=== PATIENT | female | born 1995 | race Caucasian/White ===

== ENCOUNTER 2017-06-30 15:32 | Emergency (ER) | payer BC ==
[2017-06-30] MEDS ORDERED: Sodium Chloride 0.9% 10 ML Syringe FLUSH PRN (16:27)
[2017-06-30] MEDS ORDERED: Sodium Chloride 0.9% 1,000 ML IV STA (16:27)
[2017-06-30] MEDS ORDERED: Acetaminophen 325 MG Tab PO ONE (18:49)
--- NOTE | 2017-06-30 18:55 | EDM.PDOC ---
ED HPI GENERAL MEDICAL PROBLEM - General Chief Complaint: Abdominal Pain Stated Complaint: ABDOMINAL PAINS 18 WKS PG Time Seen by Provider: 06/30/17 16:14 Source of Information: Reports: Patient History Limitations: Reports: No Limitations - History of Present Illness INITIAL COMMENTS - FREE TEXT/NARRATIVE: The patient presents with low back pain that started about an hour ago. The pain then moved to her abdomen and then to her chest. The pain was severe but it has gotten better. She denies fever, chills, cough, shortness of breath, and dysuria. She had some nausea. Onset: Gradual Duration: Hour(s): Location: Reports: Chest, Abdomen, Back Quality: Reports: Sharp Severity: Moderate Improves with: Reports: None Worsens with: Reports: None Associated Symptoms: Reports: Nausea/Vomiting. 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: Social & Family History - Family History Family Medical History: Noncontributory - Tobacco Use Smoking Status *Q: Never Smoker - Recreational Drug Use Recreational Drug Use: No ED ROS GENERAL - Review of Systems Review Of Systems: See Below Constitutional: Reports: No Symptoms HEENT: Reports: No Symptoms Respiratory: Reports: No Symptoms Cardiovascular: Reports: Chest Pain Endocrine: Reports: No Symptoms GI/Abdominal: Reports: Abdominal Pain : Reports: No Symptoms Musculoskeletal: Reports: Back Pain ED EXAM, GI/ABD - Physical Exam Exam: See Below Exam Limited By: No Limitations General Appearance: Alert, No Apparent Distress Ears: Normal External Exam Nose: Normal Inspection Head: Atraumatic, Normocephalic Neck: Normal Inspection Respiratory/Chest: No Respiratory Distress, Lungs Clear, Normal Breath Sounds Cardiovascular: Regular Rate, Rhythm, No Edema, No Murmur GI/Abdominal Exam: Soft, No Organomegaly, No Mass, Tender (Mild tenderness to the abdomen. Fundus is above the pubic symphisis.) EKG INTERPRETATION EKG Date: 06/30/17 Time: 16:47 Rhythm: NSR Rate (Beats/Min): 67 Wayside: Normal P-Wave: Present QRS: Normal ST-T: Normal QT: Normal Course - Vital Signs Last Recorded V/S: Last Vital Signs Temp 97.8 F 06/30/17 16:04 Pulse 77 06/30/17 16:04 Resp 16 06/30/17 16:04 BP 113/78 06/30/17 16:04 Pulse Ox 100 06/30/17 16:04 - Orders/Labs/Meds Orders: Active Orders 24 hr Category Date Time Status EKG Documentation Completion [RC] ASDIRECTED Care 06/30/17 16:28 Active Peripheral IV Care [RC] . DIRECTED Care 06/30/17 16:27 Active UA W/MICROSCOPIC [URIN] Stat Lab 06/30/17 16:24 Ordered Sodium Chloride 0.9% [Saline Flush] Med 06/30/17 16:27 Active 10 ml FLUSH ASDIRECTED PRN Peripheral IV Insertion Adult [OM.PC] Stat Oth 06/30/17 16:27 Ordered EKG 12 Lead [EK] Stat Ther 06/30/17 16:28 Ordered Medication Orders Sodium Chloride (Saline Flush) 10 ml FLUSH ASDIRECTED PRN PRN Reason: Keep Vein Open Last Admin: 06/30/17 16:52 Dose: 10 ml Labs: Laboratory Tests 06/30/17 06/30/17 06/30/17 Range/Units 16:24 16:45 16:45 WBC 11.31 H (3.98-10.04) K/mm3 RBC 3.76 L (3.98-5.22) M/mm3 Hgb 11.2 (11.2-15.7) gm/L Hct 32.5 L (34.1-44.9) % MCV 86.4 (79.4-94.8) fl MCH 29.8 (25.6-32.2) pg MCHC 34.5 (32.2-35.5) g/dl RDW Std Deviation 38.8 (36.4-46.3) fL Plt Count 231 (182-369) K/mm3 MPV 9.7 (9.4-12.3) fl Neut % (Auto) 76.2 H (34.0-71.1) % Lymph % (Auto) 16.9 L (19.3-51.7) % [place] % (Auto) 5.9 (4.7-12.5) % Eos % (Auto) 0.4 L (0.7-5.8) Baso % (Auto) 0.3 (0.1-1.2) % Neut # (Auto) 8.63 H (1.56-6.13) K/mm3 Lymph # (Auto) 1.91 (1.18-3.74) K/mm3 [place] # (Auto) 0.67 H (0.24-0.36) K/mm3 Eos # (Auto) 0.04 (0.04-0.36) K/mm3 Baso # (Auto) 0.03 (0.01-0.08) K/mm3 Sodium 134 L (136-145) mEq/L Potassium 3.6 (3.5-5.1) mEq/L Chloride 100 (98-107) mEq/L Carbon Dioxide 25 (21-32) mEq/L Anion Gap 12.6 (5-15) BUN 8 (7-18) mg/dL Creatinine 0.5 L (0.55-1.02) mg/dL Est Cr Clr Drug Dosing 168.46 mL/min Estimated GFR (MDRD) > 60 (>60) mL/min BUN/Creatinine Ratio 16.0 (14-18) Glucose 81 (74-106) mg/dL Calcium 9.0 (8.5-10.1) mg/dL Total Bilirubin 0.2 (0.2-1.0) mg/dL AST 16 (15-37) U/L ALT 12 L (14-59) U/L Alkaline Phosphatase 34 L (46-116) U/L Total Protein 6.7 (6.4-8.2) g/dl Albumin 3.2 L (3.4-5.0) g/dl Globulin 3.5 gm/dL Albumin/Globulin Ratio 0.9 L (1-2) Lipase 106 (73-393) U/L Urine Color Yellow (Yellow) Urine Appearance Clear (Clear) Urine pH 7.0 (5.0-8.0) Ur Specific [place] 1.020 (1.005-1.030) Urine Protein Negative (Negative) Urine Glucose (UA) Negative (Negative) Urine Ketones Negative (Negative) Urine Occult Blood Negative (Negative) Urine Nitrite Negative (Negative) Urine Bilirubin Negative (Negative) Urine Urobilinogen 0.2 (0.2-1.0) Ur Leukocyte Esterase Negative (Negative) Urine RBC Not seen (0-5) /hpf Urine WBC 0-5 (0-5) /hpf Ur Epithelial Cells 0-5 (0-5) /hpf Urine Bacteria Not seen (FEW) /hpf Urine Mucus Not seen (FEW) /hpf Meds: Medications Generic Name Dose Route Start Last Admin Trade Name Freq PRN Reason Stop Dose Admin Sodium Chloride 10 ml 06/30/17 16:27 06/30/17 16:52 Saline Flush FLUSH 10 ml ASDIRECTED PRN Administration Keep Vein Open Discontinued Medications Generic Name Dose Route Start Last Admin Trade Name Freq PRN Reason Stop Dose Admin Acetaminophen 975 mg 06/30/17 18:49 Tylenol PO 06/30/17 18:50 NOW ONE Sodium Chloride 1,000 mls @ 1,000 mls/hr 06/30/17 16:27 06/30/17 16:51 Normal Saline IV 06/30/17 17:26 1,000 mls/hr .BOLUS STA Administration - Re-Assessments/Exams Free Text/Narrative Re-Assessment/Exam: 06/30/17 18:56 I ordered an IV NS 1L bolus, UA, labs and an EKG. Her EKG shows a NSR with no acute changes. Her WBC was slightly elevated at 11.31. Her Na was slightly elevated at 134. Her UA shows no UTI. She feels a little better. I ordered some tylenol 975g by mouth. Departure - Departure Time of Disposition: 19:00 Disposition: Home, Self-Care 01 Condition: Good Clinical Impression: Atypical chest pain Abdominal pain Qualifiers: Abdominal location: generalized Qualified Code(s): R10.84 - Generalized abdominal pain Low back pain Qualifiers: Chronicity: acute Back pain laterality: bilateral Sciatica presence: without sciatica Qualified Code(s): M54.5 - Low back pain - Discharge Information Referrals: Debo Dempsey MD [Primary Care Provider] - 1 Week Additional Instructions: Drink plenty of fluids. Take tylenol for any pain. Please return if you are worse. - My Orders Last 24 Hours: My Active Orders 06/30/17 16:24 UA W/MICROSCOPIC [URIN] Stat 06/30/17 16:27 Peripheral IV Care [RC] . DIRECTED Sodium Chloride 0.9% [Saline Flush] 10 ml FLUSH ASDIRECTED PRN Peripheral IV Insertion Adult [OM.PC] Stat 06/30/17 16:28 EKG Documentation Completion [RC] ASDIRECTED EKG 12 Lead [EK] Stat - Assessment/Plan Last 24 Hours: My Active Orders 06/30/17 16:24 UA W/MICROSCOPIC [URIN] Stat 06/30/17 16:27 Peripheral IV Care [RC] . DIRECTED Sodium Chloride 0.9% [Saline Flush] 10 ml FLUSH ASDIRECTED PRN Peripheral IV Insertion Adult [OM.PC] Stat 06/30/17 16:28 EKG Documentation Completion [RC] ASDIRECTED EKG 12 Lead [EK] Stat
== END 2017-06-30 19:08 | disposition home or self-care (01) ==
LOC: JD.ED 15:32
DX: O99.89 Other specified diseases and conditions complicating pregnancy, childbirth and the puerperium (principal); R07.89 Other chest pain; M54.5 Low back pain; R10.84 Generalized abdominal pain; Z3A.18 18 weeks gestation of pregnancy
CPT/HCPCS: 36415; 80053; 81001; 83690; 85025; 93005; 96360; 99284; A9270; J7040; J7050

== ENCOUNTER 2019-11-25 22:09 | Inpatient (IN) | payer MEDICAID ==
[2019-11-25] MEDS: Lactated Ringers 1,000 ML IV SCH ×2 (22:20→23:48)
[2019-11-25] MEDS ORDERED: Ondansetron 4 MG/2 ML SDV IVPUSH PRN (22:37)
[2019-11-25] MEDS ORDERED: Sodium Chloride 0.9% 10 ML Syringe FLUSH PRN (22:37)
[2019-11-25] MEDS ORDERED: Nalbuphine 10 MG/ML Syringe IVPUSH PRN (22:37)
--- NOTE | 2019-11-25 22:40 | PCM.LDHP ---
L&D History of Present Illness - General Date of Service: 11/25/19 Admit Problem/Dx: Patient Status Order with Admit Dx/Problem 11/25/19 22:38 Patient Status [ADT] Routine Admission Diagnosis/Problem Admission Diagnosis/Problem Normal labor Source of Information: Patient History Limitations: Reports: No Limitations - History of Present Illness Introduction:: Patient is a 24 y/o at 40 1/7 wks who presents in labor. Contractions started earlier this PM. 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: : 2 Para: 1 LMP (Approximate): Psychiatric History: Reports: Anxiety, Depression, Suicide Attempt Other Psychiatric History: when 17 tried to overdose Hematologic History: Reports: Anemia - Past Surgical History HEENT Surgical History: Reports: Oral Surgery Other HEENT Surgeries/Procedures: wisdom teeth extraction Social & Family History - Family History Family Medical History: Noncontributory Cardiac: Reports: Hypertension - Tobacco Use Tobacco Use Status *Q: Former Tobacco User - Caffeine Use Caffeine Use: Reports: None - Alcohol Use Alcohol Use History: No - Recreational Drug Use Recreational Drug Use: No H&P Review of Systems - Review of Systems: Review Of Systems: See Below General: Reports: No Symptoms Pulmonary: Reports: No Symptoms Cardiovascular: Reports: No Symptoms Gastrointestinal: Reports: No Symptoms Genitourinary: Reports: No Symptoms Musculoskeletal: Reports: No Symptoms Psychiatric: Reports: No Symptoms Neurological: Reports: No Symptoms L&D Exam - Exam Exam: See Below - OB Specific Contraction Intensity: Moderate to Strong Movement: Active Heart Tones: Present Heart Tones per Min: 120 Heart Rate (FHR) Variability: Moderate (6-25 bmp) Presentation: Vertex - Lopez Score Lopez Score Cervix Position: Anterior Lopez Score Consistency: Soft Lopez Score Effacement: >80% Lopez Score Dilation: > 5 cm Lopez Score 's Station: -1 ,0 Lopez Score Total: 12 - Exam General: Alert, Oriented, Cooperative Lungs: Clear to Auscultation, Normal Respiratory Effort Cardiovascular: Regular Rate, Regular Rhythm GI/Abdominal Exam: Soft, Non-Tender Genitourinary: Normal external exam Extremities: Normal Inspection Skin: Warm, Dry, Intact - Patient Data Result Diagrams: 11/25/19 22:45 - Problem List (1) 40 weeks gestation of SNOMED Code(s): 85259115 ICD Code: Z3A.40 - 40 WEEKS GESTATION OF Status: Acute Current Visit: Yes Problem List Initiated/Reviewed/Updated: Yes Orders Last 24hrs: Active Orders 24 hr Category Date Time Status Patient Status [ADT] Routine ADT 11/25/19 22:38 Ordered Activity as Tolerated [RC] PFP Care 11/25/19 22:38 Ordered Communication Order [RC] ASDIRECTED Care 11/25/19 22:38 Ordered Heart Tones [RC] ASDIRECTED Care 11/25/19 22:38 Ordered Non Stress Test [RC] PER UNIT ROUTINE Care 11/25/19 22:38 Ordered Notify Provider [RC] PFP Care 11/25/19 22:38 Ordered Notify Provider [RC] PRN Care 11/25/19 22:38 Ordered Peripheral IV Care [RC] . DIRECTED Care 11/25/19 22:38 Ordered Vital Signs [RC] PER UNIT ROUTINE Care 11/25/19 22:38 Ordered Regular Diet [DIET] Diet 11/25/19 Dinner Ordered CBC W/O DIFF,HEMOGRAM [HEME] Stat Lab 11/25/19 22:37 Ordered CORONAVIRUS COVID-19 JUAN DANIEL [MOLEC] Stat Lab 11/25/19 22:39 Ordered RAPID PLASMA REAGIN,RPR [CHEM] Routine Lab 11/25/19 22:38 Ordered TYPE AND SCREEN [BBK] Stat Lab 11/25/19 22:37 Ordered Lactated Ringers [Ringers, Lactated] 1,000 ml Med 11/25/19 22:45 Ordered IV ASDIRECTED Nalbuphine [Nubain] Med 11/25/19 22:37 Ordered 10 mg IVPUSH Q2H PRN Ondansetron [Zofran] Med 11/25/19 22:37 Ordered 4 mg IVPUSH Q4H PRN Oxytocin/Lactated Ringers [Pitocin in LR 10 Units/1,000 Med 11/25/19 22:45 Ordered ML] 10 unit in 1,000 ml IV .CONTINUOUS Sodium Chloride 0.9% [Saline Flush] Med 11/25/19 22:37 Ordered 10 ml FLUSH ASDIRECTED PRN Electronic Heart Tones Ext w TOCO [WOMSER] Oth 11/25/19 22:38 Ordered Routine Electronic Heart Tones Internal [WOMSER] Per Unit Ot 11/25/19 22:38 O rdered Routine Peripheral IV Insertion Adult [OM.PC] Routine Oth 11/25/19 22:38 Ordered Resuscitation Status Routine Resus Stat 11/25/19 22:37 Ordered Assessment/Plan Comment:: * Labs * GBS negative * Pain management per patient preference * Anticipate
[2019-11-25] MEDS ORDERED: Oxytocin/Lactated Ringers 10 UNIT/1,000 ML BAG IV SCH (22:45)
[2019-11-25] MEDS ORDERED: ePHEDrine 50 MG/ML SDV IVPUSH PRN (23:22)
[2019-11-25] MEDS ORDERED: Bupivacaine/fentaNYL/NS 100 ML Bag EPIDUR PRN (23:22)
[2019-11-25] MEDS ORDERED: diphenhydrAMINE 50 MG/ML SDV IVPUSH PRN (23:22)
[2019-11-25] MEDS ORDERED: fentaNYL 100 MCG/2 ML SDV EPIDUR PRN (23:22)
--- NOTE | 2019-11-25 23:41 | PCM.PREANE ---
Preanesthetic Assessment - Procedure Proposed Procedure: spinal for delivery and labor - Anesthesia/Transfusion/Family Hx Anesthesia History: Prior Anesthesia Without Reaction Family History of Anesthesia Reaction: No Transfusion History: No Prior Transfusion(s) - Review of Systems General: No Symptoms Pulmonary: No Symptoms Cardiovascular: No Symptoms Gastrointestinal: No Symptoms Neurological: No Symptoms Other: Reports: Depression, Anxiety - Physical Assessment Vital Signs: 131/93 100% 20 78 Height: 5 ft 7 in Weight: 75.296 kg ASA Class: 2 Mental Status: Alert & Oriented x3 Airway Class: Mallampati = 1 Dentition: Reports: Normal Dentition Thyro-Mental Finger Breadths: 3 Mouth Opening Finger Breadths: 3 ROM/Head Extension: Full Lungs: Clear to Auscultation, Normal Respiratory Effort Cardiovascular: Regular Rate, Regular Rhythm - Lab Values: Laboratory Last Values WBC 14.57 K/mm3 (3.98-10.04) H 11/25/19 22:45 RBC 3.59 M/mm3 (3.98-5.22) L 11/25/19 22:45 Hgb 9.7 gm/dl (11.2-15.7) L 11/25/19 22:45 Hct 30.6 % (34.1-44.9) L 11/25/19 22:45 MCV 85.2 fl (79.4-94.8) 11/25/19 22:45 MCH 27.0 pg (25.6-32.2) 11/25/19 22:45 MCHC 31.7 g/dl (32.2-35.5) L 11/25/19 22:45 RDW Std Deviation 40.7 fL (36.4-46.3) 11/25/19 22:45 Plt Count 273 K/mm3 (182-369) 11/25/19 22:45 MPV 9.6 fl (9.4-12.3) 11/25/19 22:45 - Allergies Allergies/Adverse Reactions: Allergies Allergy/AdvReac Type Severity Reaction Status Date / Time No Known Allergies Allergy Verified 11/18/19 17:39 - Blood Blood Available: No - Acknowledgements Anesthesia Type Planned: Spinal Pt an Appropriate Candidate for the Planned Anesthesia: Yes Alternatives and Risks of Anesthesia Discussed w Pt/Guardian: Yes Pt/Guardian Understands and Agrees with Anesthesia Plan: Yes PreAnesthesia Questionnaire - Past Health History Medical/Surgical History: Denies Medical/Surgical History HEENT History: Reports: Impaired Vision Other HEENT History: wears eye glasses, has flashes/vision changes in Cardiovascular History: Reports: Heart Murmur (when young) Respiratory History: Reports: None Gastrointestinal History: Reports: Chronic Constipation, GERD 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 HTN Psychiatric History: Reports: Anxiety, Depression, Suicide Attempt Other Psychiatric History: when 17 tried to overdose Hematologic History: Reports: Anemia - Past Surgical History HEENT Surgical History: Reports: Oral Surgery Other HEENT Surgeries/Procedures: wisdom teeth extraction - SUBSTANCE USE Tobacco Use Status *Q: Former Tobacco User Tobacco Use Within Last Twelve Months: Cigarettes Second Hand Smoke Exposure: Yes Days Per Week of Alcohol Use: 0 Recreational Drug Use History: No - HOME MEDS Home Medications: Home Meds Vit/FA/Fe Fumarate/Se [ MTR] 1 tab PO DAILY 11/18/19 [History] - CURRENT (IN HOUSE) MEDS Current Meds: Current Medications Diphenhydramine HCl (Benadryl) 25 mg IVPUSH Q6H PRN PRN Reason: pruritis Ephedrine Sulfate (Ephedrine Sulfate) 5 mg IVPUSH ASDIRECTED PRN PRN Reason: Hypotension Fentanyl (Sublimaze) 100 mcg EPIDUR Q3H PRN PRN Reason: Pain Fentanyl/Bupivacaine HCl (Fentanyl/Bupivacaine/Ns 2 Mcg-0.125% 100 Ml) 100 ml EPIDUR ASDIRECTED PRN PRN Reason: Pain Oxytocin/Lactated Ringer's (Pitocin In Lr 10 Units/1,000 Ml) 10 unit in 1,000 mls @ 500 mls/hr IV .CONTINUOUS LETA Lactated Ringer's (Ringers, Lactated) 1,000 mls @ 100 mls/hr IV ASDIRECTED LETA Nalbuphine HCl (Nubain) 10 mg IVPUSH Q2H PRN PRN Reason: Pain Ondansetron HCl (Zofran) 4 mg IVPUSH Q4H PRN PRN Reason: Nausea/Vomiting Sodium Chloride (Saline Flush) 10 ml FLUSH ASDIRECTED PRN PRN Reason: Keep Vein Open
[2019-11-26] MEDS ORDERED: Bupivacaine 0.25% 10 ML SDV ONE
--- NOTE | 2019-11-26 00:15 | PCM.DEL ---
L & D Note - General Info Date of Service: 11/26/19 - Delivery Note Labor: Spontaneous Delivery Outcome: Livebirth Delivery Method: Spontaneous Vaginal Delivery-Single Delivery Mode: Spontaneous Presentation: Right Occiput Anterior (RICKEY) Nuchal Cord: None Anesthesia Type: Spinal Amniotic Fluid Description: Clear Episiotomy Type: None Laceration: 1st Degree Suture type: Vicryl Suture size: 2-0 Placenta: Intact, Spontaneous Cord: 3 Vessels Estimated Blood Loss: 200 Resuscitation Needed: Yes [place]: Bulb Syringe, Stimulated, Warmed, [place] Used, Warmer Used Delivery Comments (Free Text/Narrative):: Patient found to be complete and began pushing. With maternal pushing effort head delivered from RICKEY presentation. No nuchal cord present. With gentle downward traction the shoulders and body delivered. Infant placed on maternal abdomen. Cord clamped and cut. Cord blood obtained. Placenta allowed time to separate and expelled intact. Inspection of the perineum showed a 1st degree laceration which was repaired with a 2-0 Vicryl in the typical fashion - General Info Date of Service: 11/26/19 - Patient Data Weight - Most Recent: 75.296 kg - Problem List & Annotations (1) 40 weeks gestation of SNOMED Code(s): 75189646 Code(s): Z3A.40 - 40 WEEKS GESTATION OF Status: Acute Current Visit: Yes - Problem List Review Problem List Initiated/Reviewed/Updated: Yes - My Orders Last 24 Hours: My Active Orders 11/25/19 Dinner Regular Diet [DIET] 11/25/19 22:37 Nalbuphine [Nubain] 10 mg IVPUSH Q2H PRN Ondansetron [Zofran] 4 mg IVPUSH Q4H PRN Sodium Chloride 0.9% [Saline Flush] 10 ml FLUSH ASDIRECTED PRN Resuscitation Status Routine 11/25/19 22:38 Patient Status [ADT] Routine Activity as Tolerated [RC] PFP Communication Order [RC] ASDIRECTED Heart Tones [RC] ASDIRECTED Non Stress Test [RC] PER UNIT ROUTINE Notify Provider [RC] PFP Notify Provider [RC] PRN Peripheral IV Care [RC] . DIRECTED Vital Signs [RC] PER UNIT ROUTINE Electronic Heart Tones Ext w TOCO [WOMSER] Routine Electronic Heart Tones Internal [WOMSER] Per Unit Routine Peripheral IV Insertion Adult [OM.PC] Routine 11/25/19 22:45 PATIENT RETYPE [BBK] Routine RAPID PLASMA REAGIN,RPR [CHEM] Routine Lactated Ringers [Ringers, Lactated] 1,000 ml IV ASDIRECTED Oxytocin/Lactated Ringers [Pitocin in LR 10 Units/1,000 ML] 10 unit in 1,000 ml IV .CONTINUOUS - Assessment Assessment:: PPD#0 - Plan Plan:: * Routine cares * Breast feeding * Discharge home in 1-2 days
[2019-11-26] MEDS ORDERED: Benzocaine/Menthol 20%-0.5% Spray 56 GM Canister TOP PRN (01:28)
[2019-11-26] MEDS ORDERED: Docusate Sodium 100 MG Cap PO PRN (01:28)
[2019-11-26] MEDS ORDERED: Acetaminophen 325 MG Tab PO PRN (01:28)
[2019-11-26] MEDS ORDERED: Witch Hazel Medicated Pads 40/Jar TOP PRN (01:28)
[2019-11-26] MEDS: Ibuprofen 600 MG Tab PO PRN ×4 (03:12→18:39)
--- NOTE | 2019-11-26 11:06 | PCM48HPAN ---
Post Anesthesia Note - EVALUATION WITHIN 48HRS OF ANESTHETIC Vital Signs in Normal Range: Yes Patient Participated in Evaluation: Yes Respiratory Function Stable: Yes Airway Patent: Yes Cardiovascular Function Stable: Yes Hydration Status Stable: Yes Pain Control Satisfactory: Yes Nausea and Vomiting Control Satisfactory: Yes Mental Status Recovered: Yes Vital Signs: Last Vital Signs Temp 36.5 C 11/26/19 03:15 Pulse 93 11/25/19 23:31 Resp 14 11/26/19 03:15 BP 126/73 11/26/19 03:15 Pulse Ox 97 11/25/19 23:31
[2019-11-27] MEDS: Ibuprofen 600 MG Tab PO PRN ×2 (01:17→08:32)
--- NOTE | 2019-11-27 07:10 | PCM.DCSUM1 ---
Discharge Summary - Discharge Data Discharge Date: 11/27/19 Discharge Disposition: Home, Self-Care 01 Condition: Good - Referral to Home Health Primary Care Physician: Debo Dempsey MD - Discharge Diagnosis/Problem(s) (1) 40 weeks gestation of SNOMED Code(s): 79177469 ICD Code: Z3A.40 - 40 WEEKS GESTATION OF Status: Acute Current Visit: Yes - Patient Summary/Data Complications: None Consults: None Recommended Follow-up Testing/Procedures: Follow up in 3 weeks for check Hospital Course: 24 y/o at 40 1/7 wks who presented in labor. She progressed well and underwent an uncomplicated . See delivery note. she did well and was discharged home on PPD#1 - Patient Instructions Diet: Regular Diet as Tolerated Activity: As Tolerated Activity, Other: Pelvic rest for 6 weeks Driving: May Drive Today Showering/Bathing: May Shower Showering/Bathing, Other: May Bathe Notify Provider of: Fever, Increased Pain, Swelling and Redness, Drainage, Nausea and/or Vomiting - Discharge Plan *PRESCRIPTION DRUG MONITORING PROGRAM REVIEWED*: No *COPY OF PRESCRIPTION DRUG MONITORING REPORT IN PATIENT JOSE ARMANDO: No Home Medications: Home Meds Vit/FA/Fe Fumarate/Se [ MTR] 1 tab PO DAILY 11/18/19 [History] Acetaminophen [Tylenol] 650 mg PO Q4H PRN tablet 11/26/19 [Rx] Docusate Sodium [Colace] 100 mg PO BID PRN cap 11/26/19 [Rx] Ibuprofen [Motrin] 600 mg PO Q4H PRN tablet 11/26/19 [Rx] Patient Handouts: Care After Vaginal Delivery Referrals: Debo Dempsey MD [Primary Care Provider] - (3 weeks for check ) - Discharge Summary/Plan Comment DC Time >30 min.: No - Patient Data Vitals - Most Recent: Last Vital Signs Temp 36.4 C 11/27/19 03:44 Pulse 64 11/27/19 03:44 Resp 15 11/27/19 03:44 BP 104/67 11/27/19 03:44 Pulse Ox 100 11/27/19 03:44 Weight - Most Recent: 75.296 kg Lab Results - Last 24 hrs: Laboratory Results - last 24 hr 10/20/20 Range/Units 22:45 RPR Non-reactive (NONREACTIVE) Med Orders - Current: Current Medications Acetaminophen (Tylenol) 650 mg PO Q4H PRN PRN Reason: mild pain or fever Benzocaine/Menthol (Dermoplast Pain Relief [place]) 0 gm TOP ASDIRECTED PRN PRN Reason: Perineal Comfort Measure Last Admin: 11/26/19 03:13 Dose: 1 canister Documented by: Docusate Sodium (Colace) 100 mg PO BID PRN PRN Reason: Constipation Ibuprofen (Motrin) 600 mg PO Q4H PRN PRN Reason: Mild pain or fever Last Admin: 11/27/19 01:17 Dose: 600 mg Documented by: Sydney [facility] 1 pad TOP ASDIRECTED PRN PRN Reason: Perineal Comfort Measure Last Admin: 11/26/19 03:13 Dose: 1 tub Documented by: Discontinued Medications Bupivacaine HCl (Sensorcaine-Mpf 0.25%) 10 ml .ROUTE .STK-MED ONE Stop: 11/26/19 00:01 Diphenhydramine HCl (Benadryl) 25 mg IVPUSH Q6H PRN PRN Reason: pruritis Ephedrine Sulfate (Ephedrine Sulfate) 5 mg IVPUSH ASDIRECTED PRN PRN Reason: Hypotension Fentanyl (Sublimaze) 100 mcg EPIDUR Q3H PRN PRN Reason: Pain Last Admin: 11/25/19 23:45 Dose: 100 mcg Documented by: Fentanyl/Bupivacaine HCl (Fentanyl/Bupivacaine/Ns 2 Mcg-0.125% 100 Ml) 100 ml EPIDUR ASDIRECTED PRN PRN Reason: Pain Oxytocin/Lactated Ringer's (Pitocin In Lr 10 Units/1,000 Ml) 10 unit in 1,000 mls @ 500 mls/hr IV .CONTINUOUS LETA Lactated Ringer's (Ringers, Lactated) 1,000 mls @ 100 mls/hr IV ASDIRECTED LETA Last Admin: 11/25/19 23:48 Dose: 100 mls/hr Documented by: Nalbuphine HCl (Nubain) 10 mg IVPUSH Q2H PRN PRN Reason: Pain Ondansetron HCl (Zofran) 4 mg IVPUSH Q4H PRN PRN Reason: Nausea/Vomiting Sodium Chloride (Saline Flush) 10 ml FLUSH ASDIRECTED PRN PRN Reason: Keep Vein Open
--- NOTE | 2019-11-27 07:10 | PCM.PNPP ---
- General Info Date of Service: 11/27/19 Functional Status: Reports: Pain Controlled, Tolerating Diet, Ambulating, Urinating - Review of Systems General: Reports: No Symptoms Pulmonary: Reports: No Symptoms Gastrointestinal: Reports: No Symptoms Genitourinary: Reports: No Symptoms Musculoskeletal: Reports: No Symptoms Neurological: Reports: No Symptoms - Patient Data Vital Signs - Most Recent: Last Vital Signs Temp 36.4 C 11/27/19 03:44 Pulse 64 11/27/19 03:44 Resp 15 11/27/19 03:44 BP 104/67 11/27/19 03:44 Pulse Ox 100 11/27/19 03:44 Weight - Most Recent: 75.296 kg Lab Results - Last 24 Hours: Laboratory Results - last 24 hr 11/25/19 Range/Units 22:45 RPR Non-reactive (NONREACTIVE) Med Orders - Current: Current Medications Acetaminophen (Tylenol) 650 mg PO Q4H PRN PRN Reason: mild pain or fever Benzocaine/Menthol (Dermoplast Pain Relief [place]) 0 gm TOP ASDIRECTED PRN PRN Reason: Perineal Comfort Measure Last Admin: 11/26/19 03:13 Dose: 1 canister Documented by: Docusate Sodium (Colace) 100 mg PO BID PRN PRN Reason: Constipation Ibuprofen (Motrin) 600 mg PO Q4H PRN PRN Reason: Mild pain or fever Last Admin: 11/27/19 01:17 Dose: 600 mg Documented by: Sydney Rodriguez (Abhinav) 1 pad TOP ASDIRECTED PRN PRN Reason: Perineal Comfort Measure Last Admin: 11/26/19 03:13 Dose: 1 tub Documented by: Discontinued Medications Bupivacaine HCl (Sensorcaine-Mpf 0.25%) 10 ml .ROUTE .STK-MED ONE Stop: 11/26/19 00:01 Diphenhydramine HCl (Benadryl) 25 mg IVPUSH Q6H PRN PRN Reason: pruritis Ephedrine Sulfate (Ephedrine Sulfate) 5 mg IVPUSH ASDIRECTED PRN PRN Reason: Hypotension Fentanyl (Sublimaze) 100 mcg EPIDUR Q3H PRN PRN Reason: Pain Last Admin: 11/25/19 23:45 Dose: 100 mcg Documented by: Fentanyl/Bupivacaine HCl (Fentanyl/Bupivacaine/Ns 2 Mcg-0.125% 100 Ml) 100 ml EPIDUR ASDIRECTED PRN PRN Reason: Pain Oxytocin/Lactated Ringer's (Pitocin In Lr 10 Units/1,000 Ml) 10 unit in 1,000 mls @ 500 mls/hr IV .CONTINUOUS LETA Lactated Ringer's (Ringers, Lactated) 1,000 mls @ 100 mls/hr IV ASDIRECTED LETA Last Admin: 11/25/19 23:48 Dose: 100 mls/hr Documented by: Nalbuphine HCl (Nubain) 10 mg IVPUSH Q2H PRN PRN Reason: Pain Ondansetron HCl (Zofran) 4 mg IVPUSH Q4H PRN PRN Reason: Nausea/Vomiting Sodium Chloride (Saline Flush) 10 ml FLUSH ASDIRECTED PRN PRN Reason: Keep Vein Open - Interaction Disposition, : in Room with Family Interaction: Unable to Hold Infant at this Time Feeding: Attempted ; Nursed Fair/Poor Support Person: Significant Other - Recovery Exam Fundal Tone: Firm Fundal Level: 2 Fingerbreadths Below Umbilicus Fundal Placement: Midline Lochia Amount: Small Lochia Color: Rubra/Red Perineum Description: Other (see below) Other Perinuem Description: !st degree with repair Episiotomy/Laceration: None Bladder Status: Voiding Urinary Elimination: Voided - Exam General: Alert, Oriented, Cooperative GI/Abdominal Exam: Soft, Non-Tender Extremities: Normal Inspection Skin: Warm, Dry, Intact - Problem List & Annotations (1) 40 weeks gestation of SNOMED Code(s): 04845025 Code(s): Z3A.40 - 40 WEEKS GESTATION OF Status: Acute Current Visit: Yes (2) Vaginal delivery SNOMED Code(s): 338814255 Code(s): O80 - ENCOUNTER FOR FULL-TERM UNCOMPLICATED DELIVERY Status: Acute Current Visit: No - Problem List Review Problem List Initiated/Reviewed/Updated: Yes - My Orders Last 24 Hours: My Active Orders 11/26/19 Breakfast Regular Diet [DIET] 11/27/19 01:28 Heat Therapy [OM.PC] PRN 11/27/19 07:09 Ready for Discharge [RC] PER UNIT ROUTINE - Assessment Assessment:: PPD#1 - Plan Plan:: * Routine cares * Breast feeding * Discharge home today
== END 2019-11-27 11:20 | disposition home or self-care (01) | DRG 807 ==
LOC: JD.OBCHECK 22:09 → JD.OB 22:14 → JD.OBCHECK 22:38 → JD.OB 23:09 → OBSVTOIN 11-26 00:03
PROVIDERS: ADMIT Obstetrics & Gynecology; ATTEND Obstetrics & Gynecology
PROC: 10E0XZZ Delivery of Products of Conception, External Approach (ICD-10-PCS; principal; 2019-11-26)
PROC: 10907ZC Drainage of Amniotic Fluid, Therapeutic from Products of Conception, Via Natural or Artificial Opening (ICD-10-PCS; 2019-11-26)
PROC: 0HQ9XZZ Repair Perineum Skin, External Approach (ICD-10-PCS; 2019-11-26)
PROC: 3E0R3BZ Introduction of Anesthetic Agent into Spinal Canal, Percutaneous Approach (ICD-10-PCS; 2019-11-26)
PROC: 00HU33Z Insertion of Infusion Device into Spinal Canal, Percutaneous Approach (ICD-10-PCS; 2019-11-26)
DX: O99.02 Anemia complicating childbirth (principal); Z37.0 Single live birth; D64.9 Anemia, unspecified; Z87.891 Personal history of nicotine dependence; Z3A.40 40 weeks gestation of pregnancy; O70.0 First degree perineal laceration during delivery; Z20.828 Contact with and (suspected) exposure to other viral communicable diseases
CPT/HCPCS: 01967; 36415; 59025; 59409; 85027; 86592; 86850; 86900; 86901; 94762; A9270-GY; J3010; J3490; J7120; U0002

== ENCOUNTER 2024-08-13 03:39 | Emergency (ER) | payer MEDICAID ==
[2024-08-13] MEDS: Sodium Chloride 0.9% 10 ML Syringe FLUSH PRN (04:12)
[2024-08-13 04:21] LABS: BASOPHILS ABSOLUTE AUTO 0.1 K/mm3 (0.0-0.2); BASOPHILS PERCENT AUTO 0.9 % (0.0-1.0); EOSINOPHILS ABSOLUTE AUTO 0.1 K/mm3 (0.0-0.4); EOSINOPHILS PERCENT AUTO 1.3 % (0.0-6.0); IMMATURE GRAN ABSOLUTE AUTO 0.04 K/mm3 (0.00-0.05); IMMATURE GRAN PERCENT AUTO 0.5 % (0.0-0.4); LYMPHOCYTES ABSOLUTE AUTO 3.3 K/mm3 (1.0-4.8); LYMPHOCYTES PERCENT AUTO 37.7 % (24.0-44.0); MEAN PLATELET VOLUME 9.6 fl (9.4-12.3); MONOCYTES ABSOLUTE AUTO 0.7 K/mm3 (0.0-0.8); MONOCYTES PERCENT AUTO 7.6 % (0.0-8.0); NEUTROPHILS ABSOLUTE AUTO 4.6 K/mm3 (1.8-7.7); NEUTROPHILS PERCENT AUTO 52.0 % (41.0-71.0); NRBC ABSOLUTE 0.00 (0.00-0.02); NRBC PERCENT 0.0 % (0.0-0.2); PLATELET COUNT,PLT 318 K/mm3 (150-400); RED BLOOD CELL COUNT 4.17 M/mm3 (4.10-5.30); WHITE BLOOD CELL COUNT,WBC 8.80 K/mm3 (3.9-11.3)
[2024-08-13 04:26] LABS: A/G RATIO 1.0 (1-2); ALANINE AMINOTRANSFERASE,ALT 25.0 U/L (14-59); ASPARTATE AMNIOTRANSFERASE,AST 11.0 U/L (15-37); BILIRUBIN TOTAL 0.1 mg/dL (0.2-1.0); BLOOD UREA NITROGEN,BUN 15.0 mg/dL (7-18); CARBON DIOXIDE,CO2 21.0 mEq/L (21-32); CHLORIDE,CL 101.0 mEq/L (98-107); CREATININE 0.8 mg/dL (0.55-1.02); EST CRCL DRUG DOSING (CG) 111.37 mL/min; ESTIMATED GFR 104.0 mL/min (>60); GLUCOSE RANDOM 105.0 mg/dL (70-99); POTASSIUM,K 4.1 mEq/L (3.5-5.1); PROTEIN TOTAL,TP 7.7 g/dl (6.4-8.2); SODIUM,NA 137.0 mEq/L (136-145)
[2024-08-13 04:31] LABS: APPEARANCE,URINE CLEAR (Clear); GLUCOSE,URINE NEGATIVE (Negative); OCCULT BLOOD,URINE NEGATIVE (Negative)
[2024-08-13 04:36] LABS: BUPRENORPHINE SCREEN,URINE NEGATIVE (CUTOFF=10); METHADONE SCREEN, URINE NEGATIVE (CUTOFF=200); METHAMPHETAMINES SCREEN, URINE NEGATIVE (CUTOFF=500); OXYCODONE SCREEN,URINE NEGATIVE (CUT0FF=100); THC SCREEN,URINE 20 NG/ML NEGATIVE (CUTOFF=50)
[2024-08-13 04:47] LABS: AMPHETAMINES SCREEN, URINE NEGATIVE (CUTOFF=500)
[2024-08-13 04:49] LABS: EPITHELIAL CELLS,URINE 0-5 /hpf (0-5)
[2024-08-13] MEDS: Iopamidol 612 MG/ML 100 ML Bottle IVPUSH ONE (05:52)
[2024-08-13 06:07] LABS: C. TRACHOMATIS BY PCR NOT DETECTED; N. GONORRHOEAE BY PCR NOT DETECTED
== END 2024-08-13 07:45 | disposition home or self-care (01) ==
LOC: JD.ED 03:39
DX: N76.0 Acute vaginitis (principal); N83.202 Unspecified ovarian cyst, left side; K21.9 Gastro-esophageal reflux disease without esophagitis; F17.210 Nicotine dependence, cigarettes, uncomplicated; Z79.899 Other long term (current) drug therapy
CPT/HCPCS: 36415; 74177; 76830; 80053; 80306; 81001; 81515; 83690; 84703; 85025; 87086; 87491; 87591; 96361; 96374; 96376; 99284; J2270; J7030; Q9967